=== PATIENT | male | born 1970 | race Caucasian/White ===

== ENCOUNTER 2022-03-16 05:33 | Emergency (ER) | payer SELFPAY ==
[2022-03-16] MEDS ORDERED: Iopamidol 370 76% 100 ML VIAL FS ONE (05:34)
[2022-03-16] MEDS ORDERED: Morphine 4 MG/ML VIAL ONE ×3 (06:06→14:55)
[2022-03-16] MEDS ORDERED: Ondansetron PF 4 MG/2 ML Vial ONE ×2 (06:07→09:40)
[2022-03-16] MEDS ORDERED: Nitroglycerin 0.4 MG TAB 1 EACH ONE (06:21)
[2022-03-16 06:24] LABS: #Eosinphils 0.2 thou/uL (0.0-0.7); #Lymphocytes 1.2 thou/uL (1.20-3.40); #Monocytes 0.5 thou/uL (0.11-0.59); #Neutrophils 13.5 thou/uL (1.40-6.50); %Basophils 0.3 % (0.0-1.0); %Eosinophils 1.1 % (0.0-10.0); %Lymphocytes 7.8 % (21.0-51.0); %Neutrophils 87.8 % (42.0-75.0); Hemoglobin 16.3 g/dL (14.0-18.0); Mean Corpuscular HGB CONC 35.9 g/dL (32.0-36.0); Mean Corpuscular Hemoglobin 32.1 pg (27.0-31.0); Mean Corpuscular Volume 89.4 fL (78.0-98.0); Mean Platelet Volume 7.5 fL (7.4-10.4); Platelet Count 203 thou/uL (130-400); RBC Distribution Width 11.9 % (11.5-14.5); Red Blood Cell (RBC) Count 5.09 mill/uL (4.70-6.10); White Blood Cell (WBC) Count 15.4 thou/uL (4.8-10.8)
[2022-03-16 06:30] LABS: ALT (SGPT) 51 U/L (8-55); AST (SGOT) 26 U/L (5-34); Albumin 4.4 g/dL (3.5-5.0); Alkaline Phosphatase 72 U/L (40-110); Anion Gap 16 mmol/L (10-20); BUN (Urea Nitrogen) 16 mg/dL (8.4-25.7); Bilirubin, Total 1.1 mg/dL (0.2-1.2); Calc. Creatinine Clearance 0 mL/min (70-130); Carbon Dioxide 23 mmol/L (22-29); Chloride 103 mmol/L (98-107); Estimated GFR 86; Glucose 145 mg/dL (70-105); Potassium 4.2 mmol/L (3.5-5.1); Protein, Total 7.4 g/dL (6.0-8.3); Sodium 138 mmol/L (136-145)
[2022-03-16] MEDS ORDERED: Nitroglycerin 2% Ointment 1 INCH/1 GM Packet ONE (08:31)
[2022-03-16] MEDS ORDERED: Aspirin Chewable 81 MG TAB ONE (08:35)
[2022-03-16] MEDS ORDERED: Famotidine/PF 20 mg/2ml Vial ONE (09:40)
[2022-03-16 10:00] LABS: Troponin I Less than 0.010 ng/mL (< 0.028)
[2022-03-16] MEDS ORDERED: Ketorolac Tromethamine 30 MG/ML VIAL ONE (10:28)
[2022-03-16] MEDS ORDERED: Morphine 2 MG/ML VIAL ONE (10:28)
== END 2022-03-16 15:58 | disposition short-term general hospital (02) ==
LOC: BURERS 05:33
DX: I71.2 Thoracic aortic aneurysm, without rupture (principal); F17.220 Nicotine dependence, chewing tobacco, uncomplicated
CPT/HCPCS: 36415; 71045; 71275; 74174; 80053; 83690; 84484; 85025; 93005; 96374; 96375; 96376; J1885; J2270; J2405; Q9967; S0028

== ENCOUNTER 2024-01-12 13:56 | Emergency (ER) | payer SELFPAY ==
[2024-01-12] MEDS ORDERED: Lidocaine 1%/Epinephrine 1:100K 10 ML VIAL ONE (14:49)
[2024-01-12] MEDS ORDERED: Boostrix 0.5 ML (Tdap) VIAL (>/=7 yrs of age) ONE (15:20)
[2024-01-12] MEDS ORDERED: HYDROcodone/Acetaminophen 5/325 mg Tablet ONE (15:20)
== END 2024-01-12 15:33 | disposition home or self-care (01) ==
LOC: BURERS 13:56
DX: S61.012A Laceration without foreign body of left thumb without damage to nail, initial encounter (principal); S61.211A Laceration without foreign body of left index finger without damage to nail, initial encounter; F17.220 Nicotine dependence, chewing tobacco, uncomplicated; W26.0XXA Contact with knife, initial encounter; Y93.G1 Activity, food preparation and clean up
CPT/HCPCS: 12001; 90471; 90715